=== PATIENT | male | born 1985 | race African-American/Black ===

== ENCOUNTER → 2021-05-19 09:39 | Outpatient (BNVA) | payer SELFPAY | PROVIDERS: PCP Family Medicine; Visit Provider Physician Assistant | DX: Z02.79 Encounter for issue of other medical certificate (principal) ==

== ENCOUNTER → 2021-07-20 08:35 | Outpatient (BNVA) | payer SELFPAY | PROVIDERS: PCP Family Medicine ==

== ENCOUNTER → 2023-05-30 13:11 | Outpatient (BNVA) | payer SELFPAY | PROVIDERS: PCP Family Medicine; Visit Provider Internal Medicine | DX: Z02.79 Encounter for issue of other medical certificate (principal) ==